=== PATIENT | male | born 1960 | race African-American/Black ===

== ENCOUNTER → 2025-08-24 | Outpatient (CLI) | payer MEDICARE ==
[~2025-08-24] MED LIST: COMBIVENT RESPIM4 GM INH; MUCINEX1200 M1 PO; PREDNISONE10 MG PO; TRELEGY ELLIPT1 EACH INH; Ventolin 02.5 MG/3 M INH; ZITHROMAX250 MG PO
== END | disposition home or self-care (01) ==
LOC: CT 08:58 → RAD 08:58 → CT 10:00
PROVIDERS: ATTEND Family Medicine
DX: J98.4 Other disorders of lung (principal); J98.6 Disorders of diaphragm; J98.11 Atelectasis; F17.210 Nicotine dependence, cigarettes, uncomplicated